=== PATIENT | female | born 1995 | race Asian ===

== ENCOUNTER 2019-06-17 13:38 | Emergency (ER) | payer OTHER ==
--- NOTE | 2019-06-17 13:56 | NUR ---
PT DECLINED TRIAGE.STATED "I HAVE TO GO NOW"
== END 2019-06-17 13:56 | disposition left against medical advice (07) ==
LOC: SED 13:38
DX: Z53.21 Procedure and treatment not carried out due to patient leaving prior to being seen by health care provider (principal)

== ENCOUNTER 2020-04-15 23:55 | Emergency (ER) | payer MEDICAID, OTHER ==
[~2020-04-15] VITALS: Ht 165.1 cm; Wt 74.8 kg
[2020-04-16 00:05] VITALS: BP_SYST 129
[2020-04-16 00:49] VITALS: BP_SYST 126
== END 2020-04-16 00:49 | disposition home or self-care (01) ==
LOC: SED 23:55
DX: U07.1 COVID-19 (principal); J40 Bronchitis, not specified as acute or chronic
CPT/HCPCS: 36600; 71045; 82803-TC; 99284